=== PATIENT | male | born 1935 | race Caucasian/White ===

== ENCOUNTER → 2017-06-04 | Outpatient (CLI) | payer MEDICARE ==
--- NOTE | 2017-06-05 09:20 | RADONC ---
RADIATION ONCOLOGY FOLLOWUP NOTE DATE: 06/04/2017 CHART NUMBER: [id number] DIAGNOSIS: Prostate cancer. STAGE: Stage II A, [id number]. ECOG PERFORMANCE STATUS: 1. FOLLOWUP NOTE: Mr. Mojica is a very pleasant 81-year-old white male with the diagnosis of a stage II A, [id number], moderate to poorly differentiated [place] score 7 (3-4) adenocarcinoma of the prostate who is presenting to us today for routine followup visit 4 years and 9 months post completion of external beam radiation therapy. The patient presents today reporting that he is doing quite well with no complaints at this time related to his radiation therapy or disease. He has no urinary or bowel difficulties and no bone pain. REVIEW OF SYSTEMS: The patient's review of systems is noncontributory. Denies nausea, vomiting, fevers, chills, night sweats, diplopia, headaches, anxiety or depression, anorexia, weight loss, visual disturbances, chest pain, urinary or bowel difficulties, bone pain, or neurological problems. PHYSICAL EXAMINATION: The patient is a well-developed, well-nourished male in no acute distress. HEENT exam is normocephalic, atraumatic. Extraocular movements are intact. There is no palpable cervical, supraclavicular, infraclavicular, axillary, or inguinal lymphadenopathy present. Lungs are clear to auscultation and percussion. Heart has a regular rate and rhythm. Abdomen is benign with no hepatosplenomegaly, masses, or tenderness. Rectal examination reveals a normal anal sphincter tone. His prostate is smooth with no evidence of nodularity. Skeletal examination reveals no tenderness to pressure or percussion of the bony skeleton. Extremities reveal no clubbing, cyanosis, or edema. Neurologic exam is grossly intact, as is the remainder of the physical examination. ASSESSMENT: The patient is clinically doing well at this point and will be seen by me again in 1 year for further followup. He will also continue to be followed by his other physicians as well. cc: MD Inocente Milligan MD
== END ==
LOC: M ONCR 09:56
PROVIDERS: ATTEND Radiology Radiation Oncology
DX: Z08 Encounter for follow-up examination after completed treatment for malignant neoplasm (principal); Z85.46 Personal history of malignant neoplasm of prostate

== ENCOUNTER → 2018-02-25 | Outpatient (CLI) | payer MEDICARE | LOC: M PT 12:24 | DX: J44.9 Chronic obstructive pulmonary disease, unspecified (principal); R60.0 Localized edema; M62.81 Muscle weakness (generalized); I48.0 Paroxysmal atrial fibrillation | CPT/HCPCS: 97163 ==

== ENCOUNTER → 2018-05-27 | Outpatient (CLI) | payer MEDICARE | LOC: M ONCR 09:50 | DX: C61 Malignant neoplasm of prostate (principal) | CPT/HCPCS: G0463 ==

== ENCOUNTER 2018-09-02 18:55 | Inpatient (IN) | payer MEDICARE ==
[~2018-09-02] VITALS: Ht 177.8 cm; Wt 80.7 kg
[2018-09-02] MEDS ORDERED: LIDOCAINE 2% 5ML JELLY UROJET TOP ONE (19:30)
[2018-09-02] MEDS ORDERED: CARV25TA PO ×2 (19:35→22:14)
[2018-09-02] MEDS ORDERED: METF500T13 PO (19:35)
[2018-09-02] MEDS ORDERED: PRED10PA PO (19:35)
[2018-09-02] MEDS ORDERED: GLIM2TAB PO (19:35)
[2018-09-02] MEDS ORDERED: BUME2TAB3 PO ×2 (19:35→22:14)
[2018-09-02] MEDS ORDERED: TAMS1CAP17 PO (19:35)
[2018-09-02] MEDS ORDERED: ROSU20TA4 PO (19:35)
[2018-09-02] MEDS ORDERED: ASPI81CH PO (19:35)
[2018-09-02] MEDS ORDERED: DULC5TAB PO ×2 (19:35→22:14)
[2018-09-02] MEDS ORDERED: FERR325T3 PO (19:35)
[2018-09-02] MEDS ORDERED: ISOS20TA PO (19:35)
[2018-09-02] MEDS ORDERED: PROT1TAB2 PO (19:35)
[2018-09-02 19:53] LABS: HEMATOCRIT 44.6 % (42.0-52.0); HEMOGLOBIN 13.1 g/dl (13.5-17.5); MEAN CORPUSCULAR HEMOGLOBIN 29.4 pg (27.0-33.0); MEAN CORPUSCULAR HGB CONC 29.4 g/dl (32.0-36.5); MEAN CORPUSCULAR VOLUME 100.2 fl (80.0-96.0); PLATELET COUNT, AUTOMATED 141 10^3/uL (150-450); RED BLOOD COUNT 4.45 10^6/uL (4.30-6.10); WHITE BLOOD COUNT 7.9 10^3/uL (4.0-10.0)
--- NOTE | 2018-09-02 20:21 | REP ---
PORTABLE CHEST: AP portable view of the chest is performed. Comparison 04/13/2014. There is mild cardiomegaly. Mediastinal silhouette is unchanged. There are multiple sternal wires present. There is a left single lead pacemaker. There are mild bibasilar fibrotic changes. There is no acute infiltrate or pulmonary edema. IMPRESSION: Mild cardiomegaly. No acute infiltrate or pulmonary edema. Electronically Signed by Arron Cohen MD 09/03/2018 05:47 P
[2018-09-02 20:23] LABS: ABG HCO3 48.9 MEQ/L (22.0-26.0); ABG PARTIAL PRESSURE O2 68.9 mmHg (75.0-100.0); ABG STANDARD HCO3 45.4 MEQ/L (22.0-26.0); ABG TOTAL CO2 51.1 MEQ/L (23.0-31.0); ABG pH (ARTERIAL) 7.463 UNITS (7.350-7.450)
[2018-09-02 20:24] LABS: ABG PARTIAL PRESSURE CO2 69.9 mmHg (35.0-45.0)
[2018-09-02 20:29] LABS: INFLUENZA A AMPLIFICATION NEGATIVE (NEGATIVE); INFLUENZA B AMPLIFICATION NEGATIVE (NEGATIVE)
[2018-09-02 20:51] LABS: BLOOD UREA NITROGEN 30 MG/DL (7-18); CARBON DIOXIDE LEVEL 48 MEQ/L (21-32); CHLORIDE LEVEL 93 MEQ/L (98-107); GLOMERULAR FILTRATION RATE > 60.0 (>35); GLUCOSE, FASTING 81 MG/DL (70-100); NT-PRO BNP 4937 PG/ML (<450); POTASSIUM SERUM 3.8 MEQ/L (3.5-5.1); SODIUM LEVEL 143 MEQ/L (136-145)
[2018-09-02] MEDS ORDERED: FUROSEMIDE 40 MG/4 ML VIAL (J1940) IV ONE (21:15)
[2018-09-02] MEDS ORDERED: IPRATROPIUM 0.5MG/ALBUTEROL 2.5MG INH SOL UD 3ML (DUONEB)(J7620) NEB ONE (21:15)
[2018-09-02] MEDS ORDERED: predniSONE 20 MG TAB PO ONE (21:15)
[2018-09-02] MEDS ORDERED: PANT40TA3 PO (22:14)
[2018-09-02] MEDS ORDERED: CALCCHW18 PO (22:14)
[2018-09-02] MEDS ORDERED: ASPI81TAEC PO (22:14)
[2018-09-02] MEDS ORDERED: VITA100066 PO (22:14)
[2018-09-02] MEDS ORDERED: ISOS60TA2 PO (22:14)
[2018-09-02] MEDS ORDERED: CEFD1CAP8 PO (22:14)
[2018-09-02] MEDS ORDERED: VITA500T PO (22:14)
[2018-09-02] MEDS ORDERED: TREL1AER INH (22:14)
[2018-09-02] MEDS ORDERED: PRED10TA2 PO (22:14)
[2018-09-02] MEDS ORDERED: CLOT10TR MT (22:15)
[2018-09-02] MEDS ORDERED: FURO40TA2 PO (22:15)
[2018-09-02] MEDS ORDERED: IPRA0.00 INH ×2 (22:16→22:38)
[2018-09-02] MEDS ORDERED: BUDE0.5S6 INH (22:38)
[2018-09-02] MEDS ORDERED: BACITAB PO (22:38)
[2018-09-02] MEDS ORDERED: VENTAER INH (22:38)
[2018-09-02] MEDS ORDERED: NITR4TASL SL (22:38)
[2018-09-02] MEDS ORDERED: VITATAB11 PO (22:38)
[2018-09-02] MEDS ORDERED: KLOR20TA42 PO (22:38)
[2018-09-02] MEDS ORDERED: NITROGLYCERIN 0.4 MG SUBL TABLET SL PRN (23:45)
[2018-09-02] MEDS ORDERED: DEXTROSE 50% 50 ML SYRINGE IV PRN (23:45)
[2018-09-02] MEDS ORDERED: GLUCAGON FOR INJ 1 MG VIAL (J1610) SC PRN (23:45)
[2018-09-02] MEDS ORDERED: BISACODYL 5 MG TAB PO PRN (23:45)
[2018-09-02] MEDS ORDERED: GLUCOSE 4 GM CHEW TABLET PO PRN (23:45)
[2018-09-02] MEDS: AZITHROMYCIN INJ 500 MG, VIAL MATE ADAPTER 1 EACH in D5W 250 ML IV SCH (23:56)
[2018-09-02 23:57] LABS: TROPONIN I 0.07 NG/ML (< 0.10)
[2018-09-03 00:30] VITALS: BP 160/93
[2018-09-03] MEDS: FERROUS SULFATE 325MG TAB PO SCH ×3 (00:42→20:35)
[2018-09-03] MEDS: LACTOBACILLUS ACIDOPHILUS CAP (BACID) PO SCH ×3 (00:42→20:35)
[2018-09-03] MEDS: CARVedilol 12.5 MG TAB PO SCH ×3 (00:43→20:36)
[2018-09-03 06:00] VITALS: BP 135/60
[2018-09-03] MEDS ORDERED: HEPARIN SOD (PORCINE) 5000 UNITS/ML VIAL SC SCH (06:00)
[2018-09-03 06:39] LABS: HEMATOCRIT 38.5 % (42.0-52.0); HEMOGLOBIN 11.5 g/dl (13.5-17.5); MEAN CORPUSCULAR HEMOGLOBIN 29.4 pg (27.0-33.0); MEAN CORPUSCULAR HGB CONC 29.9 g/dl (32.0-36.5); MEAN CORPUSCULAR VOLUME 98.5 fl (80.0-96.0); PLATELET COUNT, AUTOMATED 114 10^3/uL (150-450); RED BLOOD COUNT 3.91 10^6/uL (4.30-6.10); WHITE BLOOD COUNT 5.6 10^3/uL (4.0-10.0)
[2018-09-03 07:18] LABS: BLOOD UREA NITROGEN 31 MG/DL (7-18); CALCIUM LEVEL 8.7 MG/DL (8.8-10.2); CARBON DIOXIDE LEVEL 44 MEQ/L (21-32); CHLORIDE LEVEL 90 MEQ/L (98-107); CREATININE FOR GFR 1.17 MG/DL (0.70-1.30); GLOMERULAR FILTRATION RATE > 60.0 (>35); GLUCOSE, FASTING 174 MG/DL (70-100); POTASSIUM SERUM 4.1 MEQ/L (3.5-5.1); SODIUM LEVEL 139 MEQ/L (136-145); THYROID STIMULATING HORMONE 0.793 uIU/ML (0.358-3.740)
[2018-09-03] MEDS: IPRATROPIUM 0.5MG/ALBUTEROL 2.5MG INH SOL UD 3ML (DUONEB)(J7620) NEB SCH ×3 (07:32→20:18)
[2018-09-03 07:33] LABS: ABG BASE EXCESS 15.4 (-2.0-2.0); ABG HCO3 43.3 MEQ/L (22.0-26.0); ABG O2 SATURATION 98.5 % (95.0-99.0); ABG STANDARD HCO3 39.4 MEQ/L (22.0-26.0); ABG TOTAL CO2 45.5 MEQ/L (23.0-31.0); ABG pH (ARTERIAL) 7.412 UNITS (7.350-7.450)
[2018-09-03 07:37] LABS: ABG PARTIAL PRESSURE CO2 69.6 mmHg (35.0-45.0)
[2018-09-03] MEDS: SYMBICORT 80/4.5MCG INHALER 6GM INH SCH ×2 (08:00→20:17)
[2018-09-03] MEDS: HumaLOG INSULIN (NovoLOG) PER UNIT SC SCH ×4 (08:10→22:36)
[2018-09-03] MEDS: VITAMIN D 1,000 INTERNATIONAL UNITS TABLET PO SCH (08:11)
[2018-09-03] MEDS: ASPIRIN 81 MG ENTERIC TAB PO SCH (08:11)
[2018-09-03] MEDS: POTASSIUM CHLORIDE 10 MEQ SR TABLET PO SCH (08:12)
[2018-09-03] MEDS: ISOSORBIDE MON. (IMDUR) 60 MG XR TAB PO SCH (08:12)
[2018-09-03] MEDS: PANTOPRAZOLE 40MG TAB (PROTONIX) PO SCH (08:13)
[2018-09-03] MEDS: ROSUVASTATIN 10 MG TAB (CRESTOR) PO SCH (08:14)
[2018-09-03] MEDS: TAMSULOSIN 0.4 MG CAP PO SCH (08:14)
[2018-09-03] MEDS ORDERED: predniSONE 50 MG TAB PO SCH (09:00)
[2018-09-03] MEDS ORDERED: BUMETANIDE 1 MG TAB PO SCH (09:00)
--- NOTE | 2018-09-03 09:22 | HPE ---
DATE OF ADMISSION: 09/02/2018 CHIEF COMPLAINT: The patient presents with runny nose, hoarseness and difficulty urinating. HISTORY OF PRESENT ILLNESS: The patient is an 82-year-old male who resides at [facility]. He has a significant past medical history of chronic obstructive pulmonary disease (COPD), chronic respiratory failure on 2 liters of oxygen at home, questionable congestive heart failure (CHF), coronary artery disease (CAD) status post coronary artery bypass grafting (CABG) as well as stenting, atrial fibrillation (AFib) status post Watchman and pacemaker, diabetes, prostate cancer status post seed implantation with Dr. Paiz. He presents to the emergency room with complaints of hoarseness of his voice, runny nose, cough with whitish sputum over the last two to three days, he has been started on cefdinir but states he noticed very little improvement in the hoarseness of his voice. He also was complaining of some difficulty urinating over the past few days. He states it is a chronic problem which has been worsening. He is having frequency and dribbling which is ongoing but has gotten worse. He has had seed implantation for prostate cancer many years ago who states with Dr. Paiz. He denies any chest pain. He denies any shortness of breath. He is saturating well at his baseline 2 liters. He denies any abdominal pain, constipation or diarrhea. PAST MEDICAL HISTORY: See history of the present illness (HPI). PAST SURGICAL HISTORY: He has had coronary artery bypass grafting (CABG), stents, Watchman placed as well as a pacemaker. ALLERGIES: To GLYBURIDE and IMIPENEM. SOCIAL HISTORY: He is a former smoker. Denies alcohol or illicit drug use. FAMILY HISTORY: Family history of diabetes. HOME MEDICATIONS: Include: - albuterol - DuoNebs - clotrimazole - metformin - prednisone - budesonide - cefdinir - aspirin - Bumex - Coreg - ferrous sulfate - Imdur - nitroglycerin - Protonix - potassium chloride - prednisone 10 - Crestor - tamsulosin REVIEW OF SYSTEMS: A 12-point review of systems was completed, all of which were negative except those listed in the history of the present illness. VITAL SIGNS ON ADMISSION: Temperature 98.6, pulse 71, respirations 20, blood pressure 122/70 saturating at 92% on 2 liters nasal cannula which is his baseline. PHYSICAL EXAMINATION: General: He is well nourished, in no apparent distress. Head is normocephalic, atraumatic. Eyes: Extraocular movements are intact. Pupils equal, round, reactive to light. Neck is supple. No jugular venous pressure (JVP). Lungs: Mild expiratory wheezing. Diminished breath sounds. No discernible crackles. Cardiovascular: Paced rhythm. Normal S1, S2. No murmurs appreciable. Abdomen: Soft, nontender, nondistended, positive bowel sounds. No costovertebral angle (CVA) tenderness. Extremities: No pitting edema or calf tenderness. Skin: Intact. Neurological: Alert and oriented (A and O) times three. No focal deficits appreciated on the examination. LABORATORIES AND IMAGING COMPLETED IN THE EMERGENCY ROOM: White count of 7, hemoglobin and hematocrit (H and H) of 13/44, platelet count of 141. Blood gas: 7.46, 69, 68, 49, 94. Chemistry shows a BUN and creatinine of 30/1.1, bicarbonate of 48. Brain natriuretic peptide (BNP) of 4900. Rapid flu was negative. Urinalysis (UA) is negative. Chest x-ray shows cardiomegaly but not acute infiltrates or pulmonary edema. ASSESSMENT AND PLAN: 1. Mild chronic obstructive pulmonary disease (COPD) exacerbation likely secondary to laryngitis which would usually not necessitate antibiotics; however, with the underlying chronic obstructive pulmonary disease we will place the patient on standing DuoNebs, azithromycin based on the Fleischner criteria with increased sputum production and change in the sputum. He is chronically on prednisone. We will place him on prednisone 60. His usual dose appears to be prednisone 10, azithromycin should also help with the laryngitis. 2. For urinary retention he has a history of prostate cancer with seed implantation and benign prostatic hyperplasia (BPH). We will continue his tamsulosin. A Santizo was placed in the emergency room. We will continue the Santizo for now. The patient would likely benefit from a urology consult as well as the initiation of finasteride. There appear to be no medications after reviewing the patient medication list that would promote urinary retention. This is likely because of his history of benign prostatic hyperplasia as well as prostate cancer with seed implantation. He states he follows with Dr. Paiz. 3. Congestive heart failure (CHF)/Coronary artery disease (CAD): The patient appears to be euvolemic. We will get an echocardiogram. His brain natriuretic peptide (BNP) is elevated; however, he does not appear to be in fluid overload. This is unlikely to be a cardiac wheeze. We will get an echocardiogram for a baseline ejection fraction (EF). For coronary artery disease, will continue aspirin and Coreg as well as Imdur. For congestive heart failure (CHF), we will continue Coreg and his Bumex as well as oxygen as needed. 4. Hyperlipidemia: Continue Crestor. We will also continue his vitamin D. 5. Diabetes: Hold metformin insulin sliding scale. 6. History of atrial fibrillation (AFib): He is status post pacemaker as well as a Watchman. He is anticoagulated and is now paced rhythm. 7. Supportive deep vein thrombosis (DVT) prophylaxis: Heparin subcutaneous. 8. Gastrointestinal (GI) prophylaxis: He is on Protonix. 9. Diet: Cardiac, diabetic, fluid restriction. Will place the patient on the observation unit. He will likely need a urology evaluation in the a.m. as well as a void trial. DANY
[2018-09-03 14:00] VITALS: BP 121/59
[2018-09-03] MEDS: VITAMIN B COMPLEX/VIT C CAP PO SCH (17:35)
--- NOTE | 2018-09-03 19:41 | ECHO ---
DATE OF PROCEDURE: 09/03/2018 REFERRING PHYSICIAN: Fritz Friday INDICATION: Dyspnea. Height 70 inches Weight 81 kg. DIMENSIONS: IVS 1.3 LV 5.8 LVPW: 1.3 LA: 5.1 Aorta 3.0 IVC 2.3 E prime septal 5.9 E prime lateral 8.8 E wave velocity 89 FINDINGS: The study is of rather limited technical quality with difficult visualization. The patient is most likely in atrial fibrillation with ventricular pacing. Left ventricle is mildly dilated. There is a global hypokinesis and atypical septal motion likely related to ventricular pacing. Overall left ventricular ejection fraction is estimated around 40-45%, computer-generated LVEF was 44%. The right ventricle appears to be at least mildly enlarged but normally contractile. There is severe biatrial enlargement. Aortic valve is sclerotic but has three leaflet valve and mobility seems to be preserved. There are also degenerative abnormalities of mitral valve with mitral annular calcifications. Tricuspid valve appears normal. Pulmonic valve also appears normal. There is an echo artifact in right-sided heart chambers consistent with pacemaker or ICD leads. No pericardial effusion is noted. Inferior vena cava is dilated but does collapse with respiration indicative of at least mildly elevated central venous pressure. Aortic root is normal. Aortic arch and abdominal aorta were not seen. Left pleural effusion is visualized. Doppler interrogation reveals no significant aortic stenosis or insufficiency. There is approximately moderate mitral and tricuspid insufficiency. Calculated pulmonary artery pressure is at minimum in high 60s which would correspond to moderately severe pulmonary hypertension. Trace pulmonic insufficiency seen. Evaluation of diastolic function is inconclusive due to underlying atrial fibrillation. CONCLUSIONS: 1. Study is of fair technical quality. 2. Mildly dilated left ventricle with LVH and overall approximately moderate left ventricular systolic dysfunction with septal segmental wall motion abnormality likely related to underlying ventricular pacing. 3. Prominent aortic sclerosis but without significant stenosis or insufficiency. 4. Approximately moderate mitral and tricuspid insufficiency. 5. High central venous pressure. 6. Moderately severe pulmonary hypertension. 7. Severe biatrial enlargement. COMMENT: Subacute bacterial endocarditis (SBE) prophylaxis is not recommended. Study is suggestive of chronic atrial fibrillation and possibly nonischemic cardiomyopathy even though ischemic etiology is certainly possible as well. [facility]
[2018-09-03 22:00] VITALS: BP 161/92
[2018-09-03] MEDS: AZITHROMYCIN INJ 500 MG, VIAL MATE ADAPTER 1 EACH in D5W 250 ML IV SCH (23:25)
[2018-09-03] MEDS: LEVEMIR (INSULIN DETEMIR) 1 UNITS/0.01ML SC SCH (23:25)
--- NOTE | 2018-09-03 23:26 | IPNPDOC ---
Text Note Date of Service The patient was seen on 09/03/18. NOTE SUBJECTIVE: Says his SOB is a little better, Has a marks in place. says has not seen any urologist in years. Says his legas used to be swollen but now improved after medications at home. No fever or chills, no abdominal pain or nausea or vomiting or diarrhea. No chest pain. Continues to have hoarseness of voice. PHYSICAL EXAMINATION: VITAL SIGNS: As below General: He is well nourished, in no apparent distress. Head is normocephalic, atraumatic. Eyes: Extraocular movements are intact. Pupils equal, round, reactive to light. Neck is supple. No jugular venous pressure (JVP). Lungs: Mild expiratory wheezing. Diminished breath sounds. No discernible crackles. Cardiovascular: Paced rhythm. Normal S1, S2. No murmurs appreciable. Abdomen: Soft, nontender, nondistended, positive bowel sounds. No costovertebral angle (CVA) tenderness. Extremities: No pitting edema or calf tenderness. Skin: Intact. Neurological: Alert and oriented (A and O) times three. No focal deficits appreciated on the examination. Labs and radiology reviewed ASSESSMENT and PLAN: The patient is an 82-year-old male who resides at [facility]. He has a significant past medical history of chronic obstructive pulmonary disease (COPD), chronic respiratory failure with hypoxia and hypercarbia on 2 liters of oxygen at home, GURDEEP, Severe pulmonary hypertension, Systolic congestive heart failure with EF of 40% to 45% ,coronary artery disease (CAD) status post coronary artery bypass grafting (CABG) as well as stenting, atrial fibrillation (AFib) status post Watchman device and pacemaker, diabetes, prostate cancer status post seed implantation and external beam radiation thera py in 2012. He presents to the emergency room with complaints of hoarseness of his voice, runny nose, cough with whitish sputum over the last two to three days, he has been started on cefdinir but states he noticed very little improvement in the hoarseness of his voice. He also was complaining of some difficulty urinating over the past few days. He states it is a chronic problem which has been worsening. He is having frequency and dribbling which is ongoing but has gotten worse. He has had seed implantation for prostate cancer many years ago and had RT repeated last year. He was found to have urinary retention and marks was placed. He was admitted for Laryngitis, COPD ex, acute urinary retention COPD exacerbation with chronic respiratory failure with hypoxia and hypercarbia likely secondary to laryngitis will continue azithromycin, prednisone, duonebs. will start symbicort as pateint is on trelegy at home will get new ABG. Severe pulmonary hypertension with corpulmonale continue diuretics prn. Acute urinary retention most probably due to obstructive uropathy. however may also have underlying neurogenic bladder form Diabetes. Has history of prostate cancer with seed implantation and RT and benign prostatic hyperplasia (BPH). continue with marks. continue flomax will consult urology. Systolic Congestive heart failure we will continue Coreg and his Bumex as well as oxygen as needed. Coronary artery disease with CABG in 2002. will continue aspirin and Coreg as well as Imdur. For congestive heart failure (CHF), we will continue Coreg and his Bumex as well as oxygen as needed. Hyperlipidemia: Continue Crestor. Diabetes levemir and lispro Chronic Atrial fibrillation (AFib): He is status post pacemaker as well as a Watchman device. He is anticoagulated and is now paced rhythm. Supportive deep vein thrombosis (DVT) prophylaxis: Sequentials. Gastrointestinal (GI) prophylaxis: He is on Protonix. VS,Fishbone, I+O VS, Fishbone, I+O Laboratory Tests 09/03/18 06:19 Red Blood Count 3.91 L, Mean Corpuscular Volume 98.5 H, Mean Corpuscular Hemoglobin 29.4, Mean Corpuscular Hemoglobin Concent 29.9 L, Red Cell Distribution Width 16.3 H, Calcium Level 8.7 L Vital Signs Date Time Temp Pulse Resp B/P (MAP) Pulse Ox O2 Delivery O2 Flow Rate FiO2 09/03/18 22:00 96.0 73 17 161/92 (115) 97 3.5 09/02/18 23:55 Nasal Cannula I&O- Last 24 Hours up to 6 AM 09/03/18 06:00 Intake Total 120 ml Output Total 800 ml Balance -680 ml SHANTANU GREY MD Sep 03, 2018 23:26
[2018-09-04] MEDS: IPRATROPIUM 0.5MG/ALBUTEROL 2.5MG INH SOL UD 3ML (DUONEB)(J7620) NEB SCH ×5 (00:44→20:00)
[2018-09-04 06:00] VITALS: BP 161/90
[2018-09-04 06:42] LABS: HEMATOCRIT 36.1 % (42.0-52.0); HEMOGLOBIN 10.9 g/dl (13.5-17.5); MEAN CORPUSCULAR HEMOGLOBIN 29.1 pg (27.0-33.0); MEAN CORPUSCULAR HGB CONC 30.2 g/dl (32.0-36.5); MEAN CORPUSCULAR VOLUME 96.5 fl (80.0-96.0); PLATELET COUNT, AUTOMATED 123 10^3/uL (150-450); RED BLOOD COUNT 3.74 10^6/uL (4.30-6.10)
[2018-09-04] MEDS: HumaLOG INSULIN (NovoLOG) PER UNIT SC SCH ×4 (07:30→21:17)
[2018-09-04 07:35] LABS: BLOOD UREA NITROGEN 35 MG/DL (7-18); CALCIUM LEVEL 8.6 MG/DL (8.8-10.2); CARBON DIOXIDE LEVEL 48 MEQ/L (21-32); CHLORIDE LEVEL 90 MEQ/L (98-107); CREATININE FOR GFR 1.06 MG/DL (0.70-1.30); GLOMERULAR FILTRATION RATE > 60.0 (>35); GLUCOSE, FASTING 51 MG/DL (70-100); POTASSIUM SERUM 4.1 MEQ/L (3.5-5.1); SODIUM LEVEL 139 MEQ/L (136-145)
[2018-09-04] MEDS: SYMBICORT 80/4.5MCG INHALER 6GM INH SCH ×2 (07:35→20:00)
[2018-09-04 08:15] VITALS: BP 138/74
[2018-09-04] MEDS: predniSONE 20 MG TAB PO SCH (08:44)
[2018-09-04] MEDS: VITAMIN D 1,000 INTERNATIONAL UNITS TABLET PO SCH (08:45)
[2018-09-04] MEDS ORDERED: POLYVINYL ALCOHOL OPHTH SOLN 15 ML(LIQUITEARS) OU PRN (08:45)
[2018-09-04] MEDS: FERROUS SULFATE 325MG TAB PO SCH ×2 (08:45→21:11)
[2018-09-04] MEDS: ASPIRIN 81 MG ENTERIC TAB PO SCH (08:45)
[2018-09-04] MEDS: LACTOBACILLUS ACIDOPHILUS CAP (BACID) PO SCH ×2 (08:45→21:11)
[2018-09-04] MEDS: VITAMIN B COMPLEX/VIT C CAP PO SCH (08:45)
[2018-09-04] MEDS: POTASSIUM CHLORIDE 10 MEQ SR TABLET PO SCH (08:46)
[2018-09-04] MEDS: PANTOPRAZOLE 40MG TAB (PROTONIX) PO SCH (08:49)
[2018-09-04] MEDS: ROSUVASTATIN 10 MG TAB (CRESTOR) PO SCH (08:50)
[2018-09-04] MEDS: CARVedilol 12.5 MG TAB PO SCH ×2 (08:50→21:12)
[2018-09-04] MEDS: ISOSORBIDE MON. (IMDUR) 60 MG XR TAB PO SCH (08:51)
[2018-09-04] MEDS: TAMSULOSIN 0.4 MG CAP PO SCH (08:51)
[2018-09-04] MEDS ORDERED: predniSONE 50 MG TAB PO SCH (09:00)
--- NOTE | 2018-09-04 10:35 | IPNPDOC ---
Text Note Date of Service The patient was seen on 09/04/18. NOTE SUBJECTIVE: Says his SOB is a little better, His voice is coming back . Has a marks in place. Says has not seen any urologist in years. Denies any chest pain . No abdominal pain , nausea or vomiting or diarrhea. PHYSICAL EXAMINATION: VITAL SIGNS: As below General: He is well nourished, in no apparent distress. Head is normocephalic, atraumatic. Eyes: Extraocular movements are intact. Pupils equal, round, reactive to light. Neck is supple. No jugular venous pressure (JVP). Lungs: Mild expiratory wheezing. Diminished breath sounds. No discernible crackles. Cardiovascular: Paced rhythm. Normal S1, S2. No murmurs appreciable. Abdomen: Soft, nontender, nondistended, positive bowel sounds. No costovertebral angle (CVA) tenderness. Extremities: No pitting edema or calf tenderness. Skin: Intact. Neurological: Alert and oriented (A and O) times three. No focal deficits appreciated on the examination. Labs and radiology reviewed ASSESSMENT and PLAN: The patient is an 82-year-old male who resides at [facility]. He has a significant past medical history of chronic obstructive pulmonary disease (COPD), chronic respiratory failure with hypoxia and hypercarbia on 2 liters of oxygen at home, GURDEEP, Severe pulmonary hypertension, Systolic congestive heart failure with EF of 40% to 45% ,coronary artery disease (CAD) status post coronary artery bypass grafting (CABG) as well as stenting, atrial fibrillation (AFib) status post Watchman device and pacemaker, diabetes, prostate cancer status post seed implantation and external beam radiation therapy in 2013. He presents to the emergency room with complaints of hoarseness of his voice, runny nose, cough with whitish sputum over the last two to three days, he has been started on cefdinir but states he noticed very little improvement in the hoarseness of his voice. He also was complaining of some difficulty urinating over the past few days. He states it is a chronic problem which has been worsening. He is having frequency and dribbling which is ongoing but has gotten worse. He has had seed implantation for prostate cancer many years ago and had RT repeated last year. He was found to have urinary retention and marks was placed. He was admitted for Laryngitis, COPD ex, acute urinary retention COPD exacerbation with chronic respiratory failure with hypoxia and hypercarbia likely secondary to laryngitis will continue azithromycin, prednisone, duonebs. will start symbicort as patient is on trelegy at home Severe pulmonary hypertension with corpulmonale continue diuretics prn. At home he is on bumex and lasix. Here there is significant metabolic alkalosis on top his respiratory acidosis. So will hold for now. Acute urinary retention most probably due to obstructive uropathy. however may also have underlying neurogenic bladder form Diabetes. Has history of prostate cancer with seed implantation and RT and benign prostatic hyperplasia (BPH). continue with marks. continue flomax will consult urology. Systolic Congestive heart failure we will continue Coreg and his Bumex as well as oxygen as needed. Coronary artery disease with CABG in 2002. will continue aspirin and Coreg as well as Imdur. For congestive heart failure (CHF), we will continue Coreg and his Bumex as well as oxygen as needed. Hyperlipidemia: Continue Crestor. Diabetes levemir and lispro Chronic Atrial fibrillation (AFib): He is status post pacemaker as well as a Watchman device. Supportive deep vein thrombosis (DVT) prophylaxis: Sequentials. Gastrointestinal (GI) prophylaxis: He is on Protonix. VS,Fishbone, I+O VS, Fishbone, I+O Laboratory Tests 09/04/18 06:30 Red Blood Count 3.74 L, Mean Corpuscular Volume 96.5 H, Mean Corpuscular Hemoglobin 29.1, Mean Corpuscular Hemoglobin Concent 30.2 L, Red Cell Distribution Width 15.9 H, Calcium Level 8.6 L Vital Signs Date Time Temp Pulse Resp B/P (MAP) Pulse Ox O2 Delivery O2 Flow Rate FiO2 09/04/18 08:51 138/74 09/04/18 08:50 62 09/04/18 08:15 97.6 22 99 3.5 09/02/18 23:55 Nasal Cannula I&O- Last 24 Hours up to 6 AM 09/04/18 06:00 Intake Total 1580 ml Output Total 1400 ml Balance 180 ml SHANTANU GREY MD Sep 04, 2018 10:35
[2018-09-04 14:00] VITALS: BP 122/72
[2018-09-04 15:28] VITALS: BP 167/90
[2018-09-04] MEDS: AZITHROMYCIN 250 MG TAB PO SCH (21:11)
[2018-09-04] MEDS: LEVEMIR (INSULIN DETEMIR) 1 UNITS/0.01ML SC SCH (21:16)
[2018-09-04 22:00] VITALS: BP 143/75
[2018-09-05] MEDS: IPRATROPIUM 0.5MG/ALBUTEROL 2.5MG INH SOL UD 3ML (DUONEB)(J7620) NEB SCH ×6 (04:00→20:00)
[2018-09-05 06:00] VITALS: BP 142/76
[2018-09-05 06:31] LABS: HEMATOCRIT 35.2 % (42.0-52.0); HEMOGLOBIN 10.9 g/dl (13.5-17.5); MEAN CORPUSCULAR HEMOGLOBIN 29.8 pg (27.0-33.0); MEAN CORPUSCULAR VOLUME 96.2 fl (80.0-96.0); PLATELET COUNT, AUTOMATED 144 10^3/uL (150-450); RED BLOOD COUNT 3.66 10^6/uL (4.30-6.10); WHITE BLOOD COUNT 6.2 10^3/uL (4.0-10.0)
--- NOTE | 2018-09-05 06:36 | ECGEPIP ---
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
[2018-09-05 07:05] LABS: BLOOD UREA NITROGEN 30 MG/DL (7-18); CALCIUM LEVEL 8.4 MG/DL (8.8-10.2); CARBON DIOXIDE LEVEL 43 MEQ/L (21-32); CHLORIDE LEVEL 93 MEQ/L (98-107); CREATININE FOR GFR 0.74 MG/DL (0.70-1.30); GLOMERULAR FILTRATION RATE > 60.0 (>35); GLUCOSE, FASTING 35 MG/DL (70-100); POTASSIUM SERUM 3.8 MEQ/L (3.5-5.1); SODIUM LEVEL 140 MEQ/L (136-145)
[2018-09-05] MEDS: HumaLOG INSULIN (NovoLOG) PER UNIT SC SCH ×4 (07:30→21:40)
[2018-09-05] MEDS: SYMBICORT 80/4.5MCG INHALER 6GM INH SCH ×2 (07:43→21:21)
[2018-09-05 08:00] VITALS: BP 141/93
[2018-09-05] MEDS: CARVedilol 12.5 MG TAB PO SCH ×2 (09:12→21:41)
[2018-09-05] MEDS: FERROUS SULFATE 325MG TAB PO SCH ×2 (09:12→21:39)
[2018-09-05] MEDS: PANTOPRAZOLE 40MG TAB (PROTONIX) PO SCH (09:13)
[2018-09-05] MEDS: POTASSIUM CHLORIDE 10 MEQ SR TABLET PO SCH (09:13)
[2018-09-05] MEDS: predniSONE 20 MG TAB PO SCH (09:13)
[2018-09-05] MEDS: VITAMIN D 1,000 INTERNATIONAL UNITS TABLET PO SCH (09:13)
[2018-09-05] MEDS: ROSUVASTATIN 10 MG TAB (CRESTOR) PO SCH (09:13)
[2018-09-05] MEDS: LACTOBACILLUS ACIDOPHILUS CAP (BACID) PO SCH ×2 (09:13→21:39)
[2018-09-05] MEDS: VITAMIN B COMPLEX/VIT C CAP PO SCH (09:13)
[2018-09-05] MEDS: ISOSORBIDE MON. (IMDUR) 60 MG XR TAB PO SCH (09:14)
[2018-09-05] MEDS: TAMSULOSIN 0.4 MG CAP PO SCH (09:14)
[2018-09-05] MEDS: ASPIRIN 81 MG ENTERIC TAB PO SCH (09:14)
[2018-09-05] MEDS ORDERED: ISOVUE-370 76% 100ML VIAL (Q9967) As Ordered ONE (13:47)
[2018-09-05 14:45] VITALS: BP 145/69
--- NOTE | 2018-09-05 14:48 | REP ---
Clinical: Urinary retention. Technique: Real time juárez scale ultrasound examination using curved array transducer. Findings: The bladder appears grossly unremarkable without wall thickening or mass lesion. Bilateral ureteral jets noted. Prevoid bladder measures 7.7 x 7.4 x 5.2 cm (155 ml). Postvoid bladder measures 3.6 x 1.5 x 0.8 cm (2.5 ml). Postvoid residual equals 2%. Prostate gland appears grossly unremarkable and measures 3.6 x 3.1 x 4.3 cm. Impression: Normal bladder ultrasound. Electronically Signed by Richard Vasquez MD 09/05/2018 02:39 P
--- NOTE | 2018-09-05 14:56 | REP ---
Clinical: Hoarseness. Technique: Axial contrast enhanced images from the skull base to the thoracic inlet with coronal and sagittal re-formations using 100 ml Isovue 370 intravenous contrast material. Findings: The nasopharynx, oropharynx, and hypopharynx as well as the laryngeal and subglottic airway and surrounding soft tissues are normal in appearance. The parotid, submandibular and submental glands appear normal. The thyroid gland is grossly unremarkable. No significant adenopathy is appreciated. Atherosclerotic calcification is present at the carotid bifurcations. The osseous structures appear intact. There is partial opacification of the ethmoid, sphenoid, and maxillary sinuses raising the possibility of acute / chronic sinusitis. Impression: 1. Essentially normal examination as described above. 2. Mild pansinusitis requires correlation. 3. Minimal atherosclerotic changes to the carotid bifurcations. Electronically Signed by Richard Vasquez MD 09/05/2018 02:47 P
--- NOTE | 2018-09-05 21:26 | IPNPDOC ---
Date Seen The patient was seen on 09/05/18. Progress Note SUBJECTIVE: Patient is a 82 yo male urinary retention. significantly improved. dr. munoz did voiding trial. he voided well. his pvr was minimal. OBJECTIVE PHYSICAL EXAMINATION: VITAL SIGNS: Please see below. GENERAL: alert and oriented x3 HEENT: c/o sore throat; no erythema no exudate CARDIOVASCULAR: rrr, good cap refill. RESPIRATORY: good excursion no wheeze. ABDOMINAL: soft non tender. marks is out. EXTREMITIES: no cyanosis no edema PSYCHOLOGICAL: normal affect LABORATORY DATA, IMAGING STUDIES, MICROBIOLOGY: Please see below. ASSESSMENT AND PLAN: This is a 82 yo male s/p removal of marks voiding well. PROBLEMS: 1. urinary retention: resolved. perhaps patient consumed medications for his sorethroat that promoted the problem with his voiding. 2. h/o prostate cancer: obtain psa f/t. f/u with dr. pierce. DISPOSITION: home per the hospitalist team. VS, I&O, 24H, Fishbone Vital Signs/I&O Vital Signs Date Time Temp Pulse Resp B/P (MAP) Pulse Ox O2 Delivery O2 Flow Rate FiO2 09/05/18 14:45 97.7 73 20 145/69 (94) 99 3.0 09/02/18 23:55 Nasal Cannula I&O- Last 24 Hours up to 6 AM 09/05/18 06:00 Intake Total 960 ml Output Total 675 ml Balance 285 ml Laboratory Data 24H LABS Laboratory Tests 2 09/05/18 06:10: Bedside Glucose (Misc Panel) 32*L 09/05/18 06:15: Bedside Glucose (Misc Panel) 30*L 09/05/18 06:20: Nucleated Red Blood Cells % (auto) 0.0, Bedside Glucose Confirm (Misc) 36*L, Anion Gap 4L, Glomerular Filtration Rate > 60.0, Blood Urea Nitrogen 30H, Creatinine 0.74, Sodium Level 140, Potassium Level 3.8, Chloride Level 93L, Carbon Dioxide Level 43H, Calcium Level 8.4L 09/05/18 06:48: Bedside Glucose (Misc Panel) 59L 09/05/18 07:24: Bedside Glucose (Misc Panel) 111H 09/05/18 08:59: 09/05/18 10:57: Bedside Glucose (Misc Panel) 216H 09/05/18 16:20: Bedside Glucose (Misc Panel) 245H 09/05/18 21:06: Bedside Glucose (Misc Panel) 299H CBC/BMP Laboratory Tests 09/05/18 06:20 Red Blood Count 3.66 L, Mean Corpuscular Volume 96.2 H, Mean Corpuscular Hemoglobin 29.8, Mean Corpuscular Hemoglobin Concent 31.0 L, Red Cell Distribution Width 15.7 H, Calcium Level 8.4 L Microbiology Microbiology 09/03/18 Group A Streptococcus Screen (JOE) - Final, Complete Korin Batista MD Sep 05, 2018 21:26
--- NOTE | 2018-09-05 21:30 | CR.PDOC ---
General Date of Consultation: Sep 04, 2018 Referring Provider: SHANTANU GREY MD Primary Care Physician: SHANTANU GREY MD Attending Physician: SHANTANU GREY MD Consultation REASON FOR CONSULTATION/CHIEF COMPLAINT: urinary retention. HISTORY OF PRESENT ILLNESS: 82yo male s/p 44 XRT for prostate cancer performed by Dr. Sanchez after Dr. Hernandez placed fiduciary markers. Over the last year the patient has been has been on flomax. He suspects the his voiding problems have been going on a while (dribbling and frequency) but got worse of the last few days associated with URI. His son does not know much about his history, but states he had some trevino beebees, but the patient states he had 44 treatments. The patient is an 82-year-old male who resides with his son. He presented to [facility] ER with complaints of hoarseness, runny nose, cough with whitish sputum over the last two to three days, he has been started on cefdinir but states he noticed very little improvement in the hoarseness of his voice. He denies pain, constipation or diarrhea. He had a marks placed yesterday. He wants it out as soon as possible PAST MEDICAL HISTORY: He has a significant past medical history of chronic obstructive pulmonary disease (COPD), chronic respiratory failure on 2 liters of oxygen at home, questionable congestive heart failure (CHF), coronary artery disease (CAD) status post coronary artery bypass grafting (CABG) as well as stenting, atrial fibrillation (AFib) status post Watchman and pacemaker, diabetes, prostate cancer status XRT 44 treatment ( Dr. Sanchez). PAST SURGICAL HISTORY: He has had coronary artery bypass grafting (CABG), stents. He also has pacemaker. ALLERGIES: GLYBURIDE and IMIPENEM. SOCIAL HISTORY: He is a former smoker. Denies alcohol or illicit drug use. FAMILY HISTORY: Family history of diabetes. HOME MEDICATIONS: Include: - albuterol - DuoNebs - clotrimazole - metformin - prednisone - budesonide - cefdinir - aspirin - Bumex - Coreg - ferrous sulfate - Imdur - nitroglycerin - Protonix - potassium chloride - prednisone 10 - Crestor - tamsulosin SOCIAL HISTORY: Marital status and/or living arrangements: lives with his son. Children: daughter and son Other relevant social factors: lives in [place]. Recalls he had a urologist in [place] that was "foreign". son has other family members come over to take care of him when he is at work. REVIEW OF SYSTEMS: CONSTITUTIONAL: sitting up; states his son will speak for him. HEENT: sore throat; voice horseness. CARDIOVASCULAR: cardiomyopathy (see echo below). RESPIRATORY: URI last few days. GENITOURINARY: urinary retention; overflow incontinence. MUSCULOSKELETAL: arthritis. GASTROINTESTINAL: no diarrhea or constipation NEUROLOGICAL: altert and oriented. ultimately patient not his son had to provide information. ENDOCRINE: diabetes. HEMATOLOGIC/LYMPHATIC: no bruising or hematoma. ECHO: CONCLUSIONS: 1. Study is of fair technical quality. 2. Mildly dilated left ventricle with LVH and overall approximately moderate left ventricular systolic dysfunction with septal segmental wall motion abnormality likely related to underlying ventricular pacing. 3. Prominent aortic sclerosis but without significant stenosis or insufficiency. 4. Approximately moderate mitral and tricuspid insufficiency. 5. High central venous pressure. 6. Moderately severe pulmonary hypertension. 7. Severe biatrial enlargement. COMMENT: Subacute bacterial endocarditis (SBE) prophylaxis is not recommended. Study is suggestive of chronic atrial fibrillation and possibly nonischemic cardiomyopathy even though ischemic etiology is certainly possible as well. DD: Alyx Ceballos MD 09/03/18 [id number] PHYSICAL EXAMINATION: VITAL SIGNS: As below General: He is well nourished, in no apparent distress. Head is normocephalic, atraumatic. Eyes: Extraocular movements are intact. Pupils equal, round, reactive to light. Neck is supple. No jugular venous pressure (JVP). Lungs: Mild expiratory wheezing. Diminished breath sounds. No discernible crackles. Cardiovascular: Paced rhythm. Normal S1, S2. No murmurs appreciable. Abdomen: Soft, nontender, nondistended, positive bowel sounds. No costovertebral angle (CVA) tenderness. Extremities: No pitting edema or calf tenderness. Skin: Intact. Neurological: Alert and oriented (A and O) times three. No focal deficits appreciated on the examination. LABORATORY DATA: Please see below. ASSESSMENT/PLAN: 1. urinary retention: marks in place; maintain flomax and marks; f/u with urology (as outpatient) for voiding trial 2. if voiding trial: fill bladder and check bladder ultrasound 3. psa free and total: f/u with dr. pierce as outpatient. Vital Signs/I&O Vital Signs Date Time Temp Pulse Resp B/P (MAP) Pulse Ox O2 Delivery O2 Flow Rate FiO2 09/04/18 15:28 96.7 60 20 167/90 (115) 100 3.0 09/02/18 23:55 Nasal Cannula I&O- Last 24 Hours up to 6 AM 09/04/18 06:00 Intake Total 1580 ml Output Total 1400 ml Balance 180 ml Laboratory Data Labs 24H Laboratory Tests 2 09/03/18 16:32: Bedside Glucose (Misc Panel) 337H 09/03/18 21:43: Bedside Glucose (Misc Panel) 389H 09/04/18 06:30: Nucleated Red Blood Cells % (auto) 0.0, Anion Gap 1L, Glomerular Filtration Rate > 60.0, Blood Urea Nitrogen 35H, Creatinine 1.06, Sodium Level 139, Potassium Level 4.1, Chloride Level 90L, Carbon Dioxide Level 48H, Calcium Level 8.6L 09/04/18 08:25: Bedside Glucose (Misc Panel) 139H 09/04/18 12:27: Bedside Glucose (Misc Panel) 102 CBC/BMP Laboratory Tests 09/04/18 06:30 Red Blood Count 3.74 L, Mean Corpuscular Volume 96.5 H, Mean Corpuscular Hemoglobin 29.1, Mean Corpuscular Hemoglobin Concent 30.2 L, Red Cell Distribution Width 15.9 H, Calcium Level 8.6 L Microbiology Microbiology 09/03/18 Group A Streptococcus Screen (JOE) - Final, Complete Allergies Coded Allergies: Glyburide (Verified Allergy, Intermediate, 09/02/18) Imipenem (Verified Allergy, Intermediate, 09/02/18) Home Medications Scheduled (Tamsulosin Hydrochloride) 0.4 Mg Cap, 0.4 MG PO DAILY, (Reported) (Calcium Gummies 250-100-500 mg-Unit) 1 Chw Chw, 1 CHW PO QHS, (Reported) (Trelegy Ellipta 100-62.5-25 Mcg/INH) 1 Aer Aer, 1 AER INH DAILY, (Reported) Albuterol/Ipratropium (Ipratropium [place]/Albut 0.5-2.5 (3) mg/3Ml) 1 Pallavi Pallavi, 1 PALLAVI INH BID, (Reported) Aspirin (Aspirin EC) 81 Mg Tabec, 81 MG PO DAILY, (Reported) B1/B2/B3/B5/B6 (Vitamin B Complex) 1 Tab Tab, 1 TAB PO DAILY, (Reported) Budesonide (Budesonide) 0.5 Mg/2 Ml Neb, 0.5 MG INH BID, (Reported) Bumetanide (Bumetanide) 2 Mg Tab, 4 MG PO BID, (Reported) TAKES AT 0800 AND 1400 Carvedilol (Carvedilol) 25 Mg Tab, 25 MG PO BID, (Reported) Cefdinir (Cefdinir) 300 Mg Cap, 300 MG PO BID, (Reported) Cholecalciferol (Vitamin D) 1,000 Unit Tab, 1,000 UNIT PO DAILY, (Reported) Clotrimazole (Clotrimazole) 10 Mg Troc, 10 MG MT QID, (Reported) Ferrous Sulfate (Ferrous Sulfate) 325 Mg Tab, 325 MG PO BID, (Reported) Furosemide (Furosemide) 40 Mg Tab, 40 MG PO BID, (Reported) TAKES AT 0800 AND 1400 Isosorbide Mononitrate (Isosorbide Mononitrate ER) 60 Mg Tab, 60 MG PO DAILY, (Reported) Lactobacillus Acidophilus (Bacid) 1 Tab Tab, 1 TAB PO BID, (Reported) Metformin Hydrochloride (Metformin HCl) 500 Mg Tab, 500 MG PO BID, (Reported) TAKES AT 0800 AND 1600 Pantoprazole Sodium (Pantoprazole Sodium) 40 Mg Tab, 40 MG PO DAILY, (Reported) Potassium Chloride (Klor-Con M20) 20 Meq Tabcr, 20 MEQ PO TID, (Reported) Prednisone (Prednisone) 10 Mg Tab, 10 MG PO DAILY, (Reported) Rosuvastatin Calcium (Rosuvastatin Calcium) 20 Mg Tab, 20 MG PO DAILY, (Reported) Scheduled PRN Albuterol Sulfate (Ventolin Hfa) 108 Mcg/Act Aer, 2 PUFFS INH Q4H PRN for SHORTNESS OF BREATH, (Reported) Albuterol/Ipratropium (Ipratropium [place]/Albut 0.5-2.5 (3) mg/3Ml) 1 Pallavi Pallavi, 1 PALLAVI INH Q4H PRN for SHORTNESS OF BREATH, (Reported) Bisacodyl (Dulcolax) 5 Mg Tab, 5 MG PO QHS PRN for CONSTIPATION, (Reported) Nitroglycerin (Nitrostat) 0.4 Mg Subl, 0.4 MG SL NITRO PRN for CHEST PAIN, (Reported) Korin Batista MD Sep 04, 2018 16:24
[2018-09-05] MEDS: FLUTICASONE PROP 0.05% NASAL SPRAY 16 GM (FLONASE) NARES SCH (21:39)
[2018-09-05] MEDS: AZITHROMYCIN 250 MG TAB PO SCH (21:39)
[2018-09-05] MEDS: LEVEMIR (INSULIN DETEMIR) 1 UNITS/0.01ML SC SCH (21:40)
[2018-09-05 22:00] VITALS: BP 134/62
--- NOTE | 2018-09-05 22:18 | IPNPDOC ---
Text Note Date of Service The patient was seen on 09/05/18. NOTE SUBJECTIVE: Says his SOB is a little better. Though his hoarseness persists. He was given a voiding trial which he did well . he had a bladder US which showed minimal post void residual. PHYSICAL EXAMINATION: VITAL SIGNS: As below General: He is well nourished, in no apparent distress. Head is normocephalic, atraumatic. Eyes: Extraocular movements are intact. Pupils equal, round, reactive to light. Neck is supple. No jugular venous pressure (JVP). Lungs: Mild expiratory wheezing. Diminished breath sounds. No discernible crackles. Cardiovascular: Paced rhythm. Normal S1, S2. No murmurs appreciable. Abdomen: Soft, nontender, nondistended, positive bowel sounds. No costovertebral angle (CVA) tenderness. Extremities: No pitting edema or calf tenderness. Skin: Intact. Neurological: Alert and oriented (A and O) times three. No focal deficits appreciated on the examination. Labs and radiology reviewed ASSESSMENT and PLAN: The patient is an 82-year-old male who resides at [facility]. He has a significant past medical history of chronic obstructive pulmonary disease (COPD), chronic respiratory failure with hypoxia and hypercarbia on 2 liters of oxygen at home, GURDEEP, Severe pulmonary hypertension, Systolic congestive heart failure with EF of 40% to 45% ,coronary artery disease (CAD) status post coronary artery bypass grafting (CABG) as well as stenting, atrial fibrillation (AFib) status post Watchman device and pacemaker, diabetes, prostate cancer status post seed implantation and external beam radiation therapy in 2013. He presents to the emergency room with complaints of hoarseness of his voice, runny nose, cough with whitish sputum over the last two to three days, he has been started on cefdinir but states he noticed very little improvement in the hoarseness of his voice. He also was complaining of some difficulty urinating over the past few days. He states it is a chronic problem which has been worsening. He is having frequency and dribbling which is ongoing but has gotten worse. He has had seed implantation for prostate cancer many years ago and had RT repeated last year. He was found to have urinary retention and marks was placed. He was admitted for Laryngitis, COPD ex, acute urinary retention COPD exacerbation with chronic respiratory failure with hypoxia and hypercarbia likely secondary to laryngitis will continue azithromycin, prednisone, duonebs. will start symbicort as patient is on trelegy at home Severe pulmonary hypertension with corpulmonale continue diuretics prn. At home he is on bumex and lasix. Here there is significant metabolic alkalosis on top his respiratory acidosis. So will hold for now. Acute urinary retention bladder US did not show any obstruction. He was given a voiding trial which he passed. This was probably due to medications for his copd exacerbation which has now resolved. continue flomax PSA ordered as per Urology recommendations. Patient has not seen a urologist for many years. Will set up regular follow up with Dr Beebe as he does have a history of prostate ca. Systolic Congestive heart failure we will continue Coreg and his Bumex as well as oxygen as needed. Coronary artery disease with CABG in 2002. will continue aspirin and Coreg as well as Imdur. For congestive heart failure (CHF), we will continue Coreg and his Bumex as well as oxygen as needed. Hyperlipidemia: Continue Crestor. Diabetes levemir and lispro Chronic Atrial fibrillation (AFib): He is status post pacemaker as well as a Watchman device. Prostate cancer with h/o seeds and PT in 2012 PSA ordered. will set up urology follow up Supportive deep vein thrombosis (DVT) prophylaxis: Sequentials. Gastrointestinal (GI) prophylaxis: He is on Protonix. VS,Fishbone, I+O VS, Fishbone, I+O Laboratory Tests 09/05/18 06:20 Red Blood Count 3.66 L, Mean Corpuscular Volume 96.2 H, Mean Corpuscular Hemoglobin 29.8, Mean Corpuscular Hemoglobin Concent 31.0 L, Red Cell Distribution Width 15.7 H, Calcium Level 8.4 L Vital Signs Date Time Temp Pulse Resp B/P (MAP) Pulse Ox O2 Delivery O2 Flow Rate FiO2 09/05/18 21:41 72 134/62 09/05/18 14:45 97.7 20 99 3.0 09/02/18 23:55 Nasal Cannula I&O- Last 24 Hours up to 6 AM 09/05/18 06:00 Intake Total 960 ml Output Total 675 ml Balance 285 ml SHANTANU GREY MD Sep 05, 2018 22:18
[2018-09-06] MEDS: IPRATROPIUM 0.5MG/ALBUTEROL 2.5MG INH SOL UD 3ML (DUONEB)(J7620) NEB SCH ×3 (03:34→08:00)
[2018-09-06 06:00] VITALS: BP 181/84
[2018-09-06 06:56] LABS: HEMATOCRIT 34.4 % (42.0-52.0); HEMOGLOBIN 10.4 g/dl (13.5-17.5); MEAN CORPUSCULAR HEMOGLOBIN 29.5 pg (27.0-33.0); MEAN CORPUSCULAR HGB CONC 30.2 g/dl (32.0-36.5); MEAN CORPUSCULAR VOLUME 97.5 fl (80.0-96.0); PLATELET COUNT, AUTOMATED 112 10^3/uL (150-450); RED BLOOD COUNT 3.53 10^6/uL (4.30-6.10); WHITE BLOOD COUNT 4.4 10^3/uL (4.0-10.0)
[2018-09-06 07:14] LABS: BLOOD UREA NITROGEN 22 MG/DL (7-18); CALCIUM LEVEL 8.2 MG/DL (8.8-10.2); CARBON DIOXIDE LEVEL 43 MEQ/L (21-32); CHLORIDE LEVEL 95 MEQ/L (98-107); GLOMERULAR FILTRATION RATE > 60.0 (>35); GLUCOSE, FASTING 118 MG/DL (70-100); POTASSIUM SERUM 3.5 MEQ/L (3.5-5.1); SODIUM LEVEL 141 MEQ/L (136-145)
[2018-09-06] MEDS: SYMBICORT 80/4.5MCG INHALER 6GM INH SCH ×2 (08:29→19:14)
[2018-09-06] MEDS: HumaLOG INSULIN (NovoLOG) PER UNIT SC SCH ×4 (08:59→22:02)
[2018-09-06] MEDS: VITAMIN B COMPLEX/VIT C CAP PO SCH (08:59)
[2018-09-06] MEDS: LACTOBACILLUS ACIDOPHILUS CAP (BACID) PO SCH ×2 (08:59→22:00)
[2018-09-06] MEDS: TAMSULOSIN 0.4 MG CAP PO SCH (08:59)
[2018-09-06] MEDS: VITAMIN D 1,000 INTERNATIONAL UNITS TABLET PO SCH (08:59)
[2018-09-06] MEDS: PANTOPRAZOLE 40MG TAB (PROTONIX) PO SCH (08:59)
[2018-09-06] MEDS: ASPIRIN 81 MG ENTERIC TAB PO SCH (09:00)
[2018-09-06] MEDS: ROSUVASTATIN 10 MG TAB (CRESTOR) PO SCH (09:00)
[2018-09-06] MEDS: FERROUS SULFATE 325MG TAB PO SCH ×2 (09:00→22:00)
[2018-09-06] MEDS: POTASSIUM CHLORIDE 10 MEQ SR TABLET PO SCH (09:00)
[2018-09-06] MEDS: predniSONE 20 MG TAB PO SCH (09:00)
[2018-09-06] MEDS: CARVedilol 12.5 MG TAB PO SCH ×2 (09:00→22:01)
[2018-09-06] MEDS: ISOSORBIDE MON. (IMDUR) 60 MG XR TAB PO SCH (09:00)
[2018-09-06] MEDS: FLUTICASONE PROP 0.05% NASAL SPRAY 16 GM (FLONASE) NARES SCH (09:01)
[2018-09-06] MEDS: FUROSEMIDE 40 MG TAB PO SCH (10:55)
--- NOTE | 2018-09-06 11:14 | IPNPDOC ---
Date Seen The patient was seen on 09/06/18. Progress Note UBJECTIVE: Patient is a 82 yo male urinary retention. significantly improved, using cpap this morning. on lasix. recalls the use of flonase mucinex and robitussin. he says he does not after peeing and dribbles after. he is doing better with that here. dr. munoz did voiding trial. he voided well. his pvr was minimal. OBJECTIVE PHYSICAL EXAMINATION: VITAL SIGNS: Please see below. GENERAL: alert and oriented x3 HEENT: c/o sore throat; no erythema no exudates CARDIOVASCULAR: rrr, good cap refill. RESPIRATORY: good excursion no wheeze. ABDOMINAL: soft non tender. Marks is out. EXTREMITIES: no cyanosis no edema PSYCHOLOGICAL: normal affect LABORATORY DATA, IMAGING STUDIES, MICROBIOLOGY: Please see below. ASSESSMENT AND PLAN: This is a 82 yo male s/p removal of marks voiding well. PROBLEMS: 1. urinary retention: resolved. 2. h/o prostate cancer: obtain psa f/t. f/u with dr. pierce. DISPOSITION: home per the hospitalist team. VS, I&O, 24H, Fishbone Vital Signs/I&O Vital Signs Date Time Temp Pulse Resp B/P (MAP) Pulse Ox O2 Delivery O2 Flow Rate FiO2 09/06/18 09:00 181/84 09/06/18 09:00 65 09/06/18 06:00 96.8 20 100 3.0 09/02/18 23:55 Nasal Cannula I&O- Last 24 Hours up to 6 AM 09/06/18 06:00 Intake Total 2130 ml Output Total 3050 ml Balance -920 ml Laboratory Data 24H LABS Laboratory Tests 2 09/05/18 16:20: Bedside Glucose (Misc Panel) 245H 09/05/18 21:06: Bedside Glucose (Misc Panel) 299H 09/06/18 05:01: Bedside Glucose (Misc Panel) 151H 09/06/18 06:42: Nucleated Red Blood Cells % (auto) 0.0, Anion Gap 3L, Glomerular Filtration Rate > 60.0, Blood Urea Nitrogen 22H, Creatinine 0.80, Sodium Level 141, Potassium Level 3.5, Chloride Level 95L, Carbon Dioxide Level 43H, Calcium Level 8.2L CBC/BMP Laboratory Tests 09/06/18 06:42 Red Blood Count 3.53 L, Mean Corpuscular Volume 97.5 H, Mean Corpuscular Hemo globin 29.5, Mean Corpuscular Hemoglobin Concent 30.2 L, Red Cell Distribution Width 15.6 H, Calcium Level 8.2 L Microbiology Microbiology 09/03/18 Group A Streptococcus Screen (JOE) - Final, Complete Korin Batista MD Sep 06, 2018 11:14
[2018-09-06] MEDS: ALBUTEROL SULFATE 2.5 MG/0.5 ML INH NEB SOLN NEB SCH ×3 (12:52→20:00)
[2018-09-06] MEDS: TIOTROPIUM INHALER/CAPSULE (SPIRIVA) INH SCH (12:52)
--- NOTE | 2018-09-06 13:27 | IPNPDOC ---
Text Note Date of Service The patient was seen on 09/06/18. NOTE SUBJECTIVE: Still getting very winded on mild exertion. having some dry coughi ng. No fever or chills, voiding well spontaneously. working with PT. PHYSICAL EXAMINATION: VITAL SIGNS: As below General: He is well nourished, in no apparent distress. Head is normocephalic, atraumatic. Eyes: Extraocular movements are intact. Pupils equal, round, reactive to light. Neck is supple. No jugular venous pressure (JVP). Lungs: Mild expiratory wheezing. Diminished breath sounds. No discernible crackles. Cardiovascular: Paced rhythm. Normal S1, S2. No murmurs appreciable. Abdomen: Soft, nontender, nondistended, positive bowel sounds. No costovertebral angle (CVA) tenderness. Extremities: No pitting edema or calf tenderness. Skin: Intact. Neurological: Alert and oriented (A and O) times three. No focal deficits appreciated on the examination. Labs and radiology reviewed ASSESSMENT and PLAN: The patient is an 82-year-old male who resides at [facility]. He has a significant past medical history of chronic obstructive pulmonary disease (COPD), chronic respiratory failure with hypoxia and hypercarbia on 2 liters of oxygen at home, GURDEEP, Severe pulmonary hypertension, Systolic congestive heart failure with EF of 40% to 45% ,coronary artery disease (CAD) status post coronary artery bypass grafting (CABG) as well as stenting, atrial fibrillation (AFib) status post Watchman device and pacemaker, diabetes, prostate cancer status post seed implantation and external beam radiation therapy in 2013. He presents to the emergency room with complaints of hoarseness of his voice, runny nose, cough with whitish sputum over the last two to three days, he has been started on cefdinir but states he noticed very little improvement in the hoarseness of his voice. He also was complaining of some difficulty urinating over the past few days. He states it is a chronic problem which has been worsening. He is having frequency and dribbling which is ongoing but has gotten worse. He has had seed implantation for prostate cancer many years ago and had RT repeated last year. He was found to have urinary retention and marks was placed. He was admitted for Laryngitis, COPD ex, acute urinary retention COPD exacerbation with chronic respiratory failure with hypoxia and hypercarbia likely secondary to laryngitis will continue azithromycin, prednisone, duonebs. will start symbicort as patient is on trelegy at home Hoarseness CT neck with contrast was negative will set up appointment with Dr Nance as outpatient in the next 7 to 10 days after discharge. already spoke to him about the patient. Severe pulmonary hypertension with corpulmonale continue diuretics prn. At home he is on bumex and lasix. Here there is significant metabolic alkalosis on top his respiratory acidosis. So will hold for now. Acute urinary retention bladder US did not show any obstruction. He was given a voiding trial which he passed. This was probably due to medications for his copd exacerbation which has now resolved. continue flomax PSA ordered as per Urology recommendations. Patient has not seen a urologist for many years. Will set up regular follow up with Dr Beebe as he does have a history of prostate ca. Systolic Congestive heart failure we will continue Coreg and his Bumex as well as oxygen as needed. Coronary artery disease with CABG in 2002. will continue aspirin and Coreg as well as Imdur. For congestive heart failure (CHF), we will continue Coreg and his Bumex as well as oxygen as needed. Hyperlipidemia: Continue Crestor. Diabetes levemir and lispro Chronic Atrial fibrillation (AFib): He is status post pacemaker as well as a Watchman device. Prostate cancer with h/o seeds and PT in 2012 PSA ordered. will set up urology follow up Supportive deep vein thrombosis (DVT) prophylaxis: Sequentials. Gastrointestinal (GI) prophylaxis: He is on Protonix. VS,Fishbone, I+O VS, Fishbone, I+O Laboratory Tests 09/06/18 06:42 Red Blood Count 3.53 L, Mean Corpuscular Volume 97.5 H, Mean Corpuscular Hemoglobin 29.5, Mean Corpuscular Hemoglobin Concent 30.2 L, Red Cell Distri bution Width 15.6 H, Calcium Level 8.2 L Vital Signs Date Time Temp Pulse Resp B/P (MAP) Pulse Ox O2 Delivery O2 Flow Rate FiO2 09/06/18 12:40 69 2.0 92 09/06/18 09:00 181/84 09/06/18 06:00 96.8 20 100 09/02/18 23:55 Nasal Cannula I&O- Last 24 Hours up to 6 AM 09/06/18 06:00 Intake Total 2130 ml Output Total 3050 ml Balance -920 ml SHANTANU GREY MD Sep 06, 2018 13:27
[2018-09-06 14:00] VITALS: BP 138/65
[2018-09-06 22:00] VITALS: BP 150/68
[2018-09-06] MEDS: AZITHROMYCIN 250 MG TAB PO SCH (22:00)
[2018-09-06] MEDS: LEVEMIR (INSULIN DETEMIR) 1 UNITS/0.01ML SC SCH (22:01)
[2018-09-07] MEDS: ALBUTEROL SULFATE 2.5 MG/0.5 ML INH NEB SOLN NEB SCH ×3 (04:00→08:00)
[2018-09-07 06:00] VITALS: BP 174/98
[2018-09-07] MEDS: HumaLOG INSULIN (NovoLOG) PER UNIT SC SCH (07:30)
[2018-09-07 07:46] LABS: HEMATOCRIT 35.9 % (42.0-52.0); HEMOGLOBIN 10.7 g/dl (13.5-17.5); MEAN CORPUSCULAR HEMOGLOBIN 29.7 pg (27.0-33.0); MEAN CORPUSCULAR HGB CONC 29.8 g/dl (32.0-36.5); MEAN CORPUSCULAR VOLUME 99.7 fl (80.0-96.0); PLATELET COUNT, AUTOMATED 142 10^3/uL (150-450); WHITE BLOOD COUNT 5.3 10^3/uL (4.0-10.0)
[2018-09-07 08:07] LABS: BLOOD UREA NITROGEN 25 MG/DL (7-18); CALCIUM LEVEL 8.3 MG/DL (8.8-10.2); CARBON DIOXIDE LEVEL 42 MEQ/L (21-32); CHLORIDE LEVEL 99 MEQ/L (98-107); CREATININE FOR GFR 0.77 MG/DL (0.70-1.30); GLOMERULAR FILTRATION RATE > 60.0 (>35); GLUCOSE, FASTING 76 MG/DL (70-100); POTASSIUM SERUM 3.7 MEQ/L (3.5-5.1); SODIUM LEVEL 144 MEQ/L (136-145)
[2018-09-07] MEDS: SYMBICORT 80/4.5MCG INHALER 6GM INH SCH (08:35)
[2018-09-07] MEDS: TIOTROPIUM INHALER/CAPSULE (SPIRIVA) INH SCH (08:35)
[2018-09-07] MEDS ORDERED: predniSONE 10 MG TAB PO SCH (09:00)
[2018-09-07] MEDS: CARVedilol 12.5 MG TAB PO SCH (09:19)
[2018-09-07] MEDS: POTASSIUM CHLORIDE 10 MEQ SR TABLET PO SCH (09:20)
[2018-09-07] MEDS: VITAMIN B COMPLEX/VIT C CAP PO SCH (09:20)
[2018-09-07] MEDS: ROSUVASTATIN 10 MG TAB (CRESTOR) PO SCH (09:20)
[2018-09-07 09:21] VITALS: BP 174/98
[2018-09-07] MEDS: PANTOPRAZOLE 40MG TAB (PROTONIX) PO SCH (09:21)
[2018-09-07] MEDS: FERROUS SULFATE 325MG TAB PO SCH (09:21)
[2018-09-07] MEDS: LACTOBACILLUS ACIDOPHILUS CAP (BACID) PO SCH (09:21)
[2018-09-07] MEDS: FUROSEMIDE 40 MG TAB PO SCH (09:21)
[2018-09-07] MEDS: VITAMIN D 1,000 INTERNATIONAL UNITS TABLET PO SCH (09:21)
[2018-09-07] MEDS: ISOSORBIDE MON. (IMDUR) 60 MG XR TAB PO SCH (09:21)
[2018-09-07] MEDS: TAMSULOSIN 0.4 MG CAP PO SCH (09:21)
[2018-09-07] MEDS: ASPIRIN 81 MG ENTERIC TAB PO SCH (09:22)
[2018-09-07] MEDS: FLUTICASONE PROP 0.05% NASAL SPRAY 16 GM (FLONASE) NARES SCH (09:22)
[2018-09-07] MEDS ORDERED: PRED10TA2 PO (11:56)
[2018-09-08 16:21] LABS: PSA TOTAL 1.3 ng/mL (0.0-4.0)
== END 2018-09-07 13:10 | disposition home health service (06) | DRG 191 ==
LOC: M ED 18:55 → M ED INP 23:43 → M MS5PR 09-03 00:25 → OBSVTOIN 09-04 10:13 → INTOOBSV 09-04 10:13
PROVIDERS: ADMIT Internal Medicine; ATTEND Internal Medicine Nephrology
DX: J44.1 Chronic obstructive pulmonary disease with (acute) exacerbation (principal); J96.11 Chronic respiratory failure with hypoxia; J96.12 Chronic respiratory failure with hypercapnia; I50.22 Chronic systolic (congestive) heart failure; E87.4 Mixed disorder of acid-base balance; I25.10 Atherosclerotic heart disease of native coronary artery without angina pectoris; I48.2 Chronic atrial fibrillation; E78.5 Hyperlipidemia, unspecified; E11.9 Type 2 diabetes mellitus without complications; I27.29 Other secondary pulmonary hypertension; Z66 Do not resuscitate; N40.1 Benign prostatic hyperplasia with lower urinary tract symptoms; J04.0 Acute laryngitis; R33.9 Retention of urine, unspecified; Z85.46 Personal history of malignant neoplasm of prostate; Z95.5 Presence of coronary angioplasty implant and graft; Z99.81 Dependence on supplemental oxygen; Z95.0 Presence of cardiac pacemaker; Z88.8 Allergy status to other drugs, medicaments and biological substances; Z87.891 Personal history of nicotine dependence; Z79.52 Long term (current) use of systemic steroids; Z79.84 Long term (current) use of oral hypoglycemic drugs; Z79.82 Long term (current) use of aspirin; Z79.899 Other long term (current) drug therapy